=== PATIENT | male | born 1950 | race Caucasian/White ===

== ENCOUNTER 2020-01-22 13:44 | Outpatient (CLI) | payer MEDICARE ==
[2020-01-22 16:12] LABS: #Basophils 0.1 10x3/uL (0.0-0.2); #Eosinphils 0.2 10x3/uL (0.0-0.5); #Monocytes 0.5 10x3/uL (0.0-1.1); #Neutrophils 4.4 10x3/uL (1.5-8.4); %Basophils 0.7 % (0.0-2.0); %Eosinophils 3.2 % (0.0-6.0); %Lymphocytes 25.9 % (18.0-47.0); %Monocytes 6.5 % (0.0-10.0); %Neutrophils 63.6 % (40.0-75.0); Hemoglobin 14.9 g/dL (14.0-18.0); Mean Corpuscular HGB CONC 33.6 G/DL (32.0-36.0); Mean Corpuscular Hemoglobin 31.4 PG (27.0-33.0); Mean Corpuscular Volume 93.5 fl (80.0-100.0); Mean Platelet Volume 9.6 fl (7.4-10.4); Platelet Count 314 10x3/uL (130-400); RBC Distribution Width 12.2 % (11.5-14.5); Red Blood Cell (RBC) Count 4.74 10x6/uL (4.40-5.80)
[2020-01-22 16:36] LABS: Anion Gap 13 mmol/L (10-20); BUN (Urea Nitrogen) 13 mg/dL (8.4-25.7); Calc. Creatinine Clearance 0 mL/min (70-130); Carbon Dioxide 26 mmol/L (23-31); Cardiac Risk 4.8 (Less than 4.5); Chloride 105 mmol/L (98-107); Cholesterol 218 mg/dl (< 200 Desired); Estimated GFR-MDRD 62; Glucose 93 mg/dL (80-115); HDL Cholesterol 45 mg/dL (>60 Neg Risk); LDL Cholesterol, Calculated 141 mg/dL; Potassium 4.4 mmol/L (3.5-5.1); Sodium 140 mmol/L (136-145); Triglycerides 159 mg/dL (Less than 150)
[2020-01-23 12:11] LABS: SARS-CoV-2 MS2 Positive; SARS-CoV-2 N Gene Negative; SARS-CoV-2 S Gene Negative; SARS-CoV-2 by NAA Not Detected (NotDetected); SARS-CoV-2 orf1ab Negative
== END 2020-01-22 13:45 | disposition home or self-care (01) ==
LOC: LABBT 13:44
PROVIDERS: ATTEND Internal Medicine Cardiovascular Disease
DX: Z01.812 Encounter for preprocedural laboratory examination (principal); Z20.828 Contact with and (suspected) exposure to other viral communicable diseases
CPT/HCPCS: 80048; 80061; 85025; U0003; 87635

== ENCOUNTER 2020-01-25 07:15 | Day surgery (SDC) | payer MEDICARE ==
[2020-01-24 11:09] VITALS: BMI 21.1
[2020-01-25 08:16] LABS: Cardiac Risk 4.7 (Less than 4.5)
--- NOTE | 2020-01-25 10:42 | OP ---
DATE OF PROCEDURE: 01/25/2020 PROCEDURE PERFORMED: Transesophageal echocardiogram. INDICATIONS: A 69-year-old gentleman with mitral regurgitation. DESCRIPTION OF PROCEDURE: The patient was taken to the PACU. The patient was sedated by Anesthesiology. A transesophageal probe was placed into the distal esophagus and stomach. The echocardiographic images were obtained. The transesophageal probe was removed. FINDINGS: 1. Normal left ventricular systolic function. 2. Biatrial enlargement. 3. Normal mitral and aortic valves. 4. Cdenqkff-ba-davwqa mitral regurgitation. 5. Mild tricuspid regurgitation. 6. No thrombus noted in the left atrium or left atrial appendage. IMPRESSION: Cmnhzwbp-os-dnmeov mitral regurgitation with no thrombus noted in the left atrium or left atrial appendage. Job ID: [id number]
[2020-01-25] MEDS ORDERED: PHENYLEPHRINE-NS 100 MCG/ML 10 ML SYRINGE ONE (11:07)
[2020-01-25] MEDS ORDERED: PROPOFOL 200 MG/20 ML VIAL ONE (11:07)
[2020-01-25] MEDS ORDERED: Lidocaine 1% PF 5 ML VIAL ONE ×2 (11:07)
--- NOTE | 2020-01-25 14:37 | OP ---
DATE OF PROCEDURE: 01/25/2020 PROCEDURE PERFORMED: Transesophageal echocardiogram. INDICATIONS: A 69-year-old gentleman with mitral regurgitation. DESCRIPTION OF PROCEDURE: The patient was taken to the PACU. The patient was sedated by Anesthesiology. A transesophageal probe was placed into the distal esophagus and stomach. Echocardiographic images were obtained. The transesophageal probe was removed. FINDINGS: 1. Normal left ventricular systolic function. 2. Biatrial enlargement. 3. Severe mitral valve prolapse. 4. Cdlgqivl-mq-nsdmgt mitral regurgitation. 5. Mild tricuspid regurgitation. 6. No thrombus is noted in left atrium or left atrial appendage. IMPRESSION: Severe mitral valve prolapse with ecziugfj-hc-zjgqke mitral regurgitation with no formed thrombus in the left atrium or left atrial appendage. Job ID: [id number]
--- NOTE | 2020-01-28 20:53 | EKG ---
Test Reason : POST CARDIOVERSION Blood Pressure : / mmHG Vent. Rate : 052 BPM Atrial Rate : 052 BPM P-R Int : 204 ms QRS Dur : 150 ms QT Int : 510 ms P-R-T Axes : 079 047 051 degrees QTc Int : 474 ms Sinus bradycardia Right bundle branch block Abnormal ECG No previous ECGs available Confirmed by Mason PACHECO ([id number]) on 01/28/2020 8:52:52 PM Referred By: JESSY Confirmed By:Mason PACHECO
== END 2020-01-25 10:57 | disposition home or self-care (01) ==
LOC: CCL 07:15
PROVIDERS: ATTEND Internal Medicine Cardiovascular Disease
DX: I48.91 Unspecified atrial fibrillation (principal); I08.1 Rheumatic disorders of both mitral and tricuspid valves; J45.909 Unspecified asthma, uncomplicated; K21.9 Gastro-esophageal reflux disease without esophagitis; E78.00 Pure hypercholesterolemia, unspecified; E78.5 Hyperlipidemia, unspecified; Z79.01 Long term (current) use of anticoagulants; Z79.899 Other long term (current) drug therapy
CPT/HCPCS: 80061; 92960; 93005; 93010; 93312; J2704

== ENCOUNTER 2020-05-24 10:46 | Outpatient (CLI) | payer MEDICARE ==
[2020-04-24 14:19] LABS: Calcium 8.6 mg/dL (7.8-10.44); Chloride 105 mmol/L (98-107); Potassium 4.2 mmol/L (3.5-5.1); Sodium 139 mmol/L (136-145)
[2020-04-24 14:22] LABS: #Basophils 0.1 10x3/uL (0.0-0.2); #Eosinphils 0.2 10x3/uL (0.0-0.5); #Monocytes 0.6 10x3/uL (0.0-1.1); #Neutrophils 4.4 10x3/uL (1.5-8.4); %Basophils 0.7 % (0.0-2.0); %Eosinophils 3.4 % (0.0-6.0); %Monocytes 8.9 % (0.0-10.0); %Neutrophils 63.7 % (40.0-75.0); Hemoglobin 14.3 g/dL (14.0-18.0); Mean Corpuscular HGB CONC 33.3 G/DL (32.0-36.0); Mean Corpuscular Hemoglobin 31.6 PG (27.0-33.0); Mean Corpuscular Volume 94.9 fl (80.0-100.0); Platelet Count 260 10x3/uL (130-400); RBC Distribution Width 12.8 % (11.5-14.5); Red Blood Cell (RBC) Count 4.53 10x6/uL (4.40-5.80); White Blood Cell (WBC) Count 6.8 10x3/uL (4.5-11.0)
[2020-04-24 14:48] LABS: INR-International Normal Ratio 1.2; PTT 29.2 sec (22.0-33.0); Prothrombin Time 12.1 sec (9.5-12.1)
[2020-04-24 15:18] LABS: Anion Gap 15 mmol/L (10-20); BUN (Urea Nitrogen) 14 mg/dL (8.4-25.7); Calc. Creatinine Clearance 0 mL/min (70-130); Carbon Dioxide 23 mmol/L (23-31); Glucose 108 mg/dL (80-115)
[2020-04-25 02:44] LABS: SARS-CoV-2 PCR by NAA Not Detected (NotDetected)
[2020-05-24 12:21] LABS: Hemoglobin 14.3 g/dL (13.5-17.5); Mean Corpuscular Hemoglobin 31.8 pg (27.0-33.0); Mean Corpuscular Volume 93.8 fl (81.2-95.1); Mean Platelet Volume 9.8 fl (7.4-10.4); Platelet Count 224 10x3/uL (150-450); RBC Distribution Width 12.5 % (11.5-14.5); Red Blood Cell (RBC) Count 4.49 10x6/uL (4.32-5.72); White Blood Cell (WBC) Count 6.4 10x3/uL (3.5-10.5)
[2020-05-24 12:35] LABS: INR-International Normal Ratio 1.1
[2020-05-24 12:37] LABS: Anion Gap 12 mmol/L (10-20); BUN (Urea Nitrogen) 15 mg/dL (8.4-25.7); Calc. Creatinine Clearance 0 mL/min (70-130); Calcium 8.9 mg/dL (7.8-10.44); Carbon Dioxide 28 mmol/L (23-31); Chloride 103 mmol/L (98-107); Glucose 64 mg/dL (80-115); Potassium 4.5 mmol/L (3.5-5.1); Sodium 138 mmol/L (136-145)
[2020-05-24 21:53] LABS: SARS-CoV-2 PCR by NAA Not Detected (NotDetected)
== END 2020-05-24 10:47 | disposition home or self-care (01) ==
LOC: LABBT 10:46
PROVIDERS: ATTEND Internal Medicine Cardiovascular Disease
DX: Z01.818 Encounter for other preprocedural examination (principal); Z20.822 Contact with and (suspected) exposure to COVID-19
CPT/HCPCS: 80048 ×2; 85025; 85027; 85610 ×2; 85730 ×2; 93005 ×2; U0003 ×2; U0005 ×2; 87635; 93010

== ENCOUNTER 2020-05-27 06:05 | Observation (INO) | payer MEDICARE ==
[2020-04-25 11:46] VITALS: BMI 21.1
[2020-05-27] MEDS ORDERED: Heparin 2,000 ML ONE (06:42)
[2020-05-27] MEDS ORDERED: Heparin 10,000 UNITS/ 10 ML VIAL ONE ×2 (06:42→10:42)
[2020-05-27] MEDS ORDERED: Fentanyl 100 MCG/2 ML VIAL ONE ×2 (06:49→13:43)
[2020-05-27] MEDS ORDERED: Famotidine/PF 20 mg/2ml Vial ONE (07:26)
[2020-05-27] MEDS ORDERED: Isoproterenol 0.2 MG/1 ML AMP ONE ×3 (08:07→10:42)
[2020-05-27] MEDS ORDERED: Heparin 25,000 units/D5W 500 ML ONE (08:57)
[2020-05-27] MEDS ORDERED: Lidocaine 1% PF 5 ML VIAL ONE (10:33)
[2020-05-27] MEDS ORDERED: Dexamethasone 20 MG/5 ML VIAL ONE (10:33)
[2020-05-27] MEDS ORDERED: Glycopyrrolate 0.2 MG/ML 5 ML SYRINGE ONE (10:33)
[2020-05-27] MEDS ORDERED: Rocuronium Bromide 10 MG/ML (10ML VIAL) ONE (10:33)
[2020-05-27] MEDS ORDERED: Vecuronium 10 MG VIAL ONE (10:33)
[2020-05-27] MEDS ORDERED: Ondansetron PF 4 MG/2 ML Vial ONE (10:33)
[2020-05-27] MEDS ORDERED: PROPOFOL 200 MG/20 ML VIAL ONE (10:33)
[2020-05-27] MEDS ORDERED: PHENYLEPHRINE-NS 100 MCG/ML 10 ML SYRINGE ONE ×2 (10:33→11:34)
[2020-05-27] MEDS ORDERED: Calcium Chloride 1 GM/10 ML Abboject SYRINGE ONE (10:33)
[2020-05-27] MEDS ORDERED: Protamine Sulfate 50 MG/5 ML VIAL ONE (12:11)
[2020-05-27] MEDS ORDERED: Acetaminophen/Codeine 30-300mg Tablet PO PRN ×2 (13:47)
[2020-05-27] MEDS ORDERED: Ketorolac Tromethamine 30 MG/ML VIAL IVP PRN (13:47)
[2020-05-27] MEDS ORDERED: Acetaminophen 325 MG TAB PO PRN (13:50)
[2020-05-27] MEDS ORDERED: diphenhydrAMINE 25 MG CAP PO PRN (13:51)
[2020-05-27] MEDS ORDERED: Sucralfate 1 GM TAB PO PRN (13:51)
[2020-05-27] MEDS ORDERED: Calcium Carbonate 500 MG ChewTAB PO PRN (16:01)
[2020-05-27] MEDS ORDERED: Cepastat Lozenges 1 LOZ PO PRN (16:01)
[2020-05-27] MEDS: Apixaban 5 MG TAB PO SCH (20:16)
[2020-05-27] MEDS ORDERED: Atorvastatin Calcium 40 MG TAB PO SCH (21:00)
[2020-05-28 04:55] VITALS: TEMP 98.1
[2020-05-28] MEDS: Apixaban 5 MG TAB PO SCH (08:00)
[2020-05-28 08:06] VITALS: BP 121/72
[2020-05-28] MEDS ORDERED: Aspirin 81 mg Enteric Coated Tablet PO SCH (09:00)
== END 2020-05-28 10:52 | disposition home or self-care (01) ==
LOC: CCL 06:05 → 3SE 06:35
PROVIDERS: ADMIT Internal Medicine Cardiovascular Disease; ATTEND Internal Medicine Cardiovascular Disease
PROC: 4A023FZ Measurement of Cardiac Rhythm, Percutaneous Approach (ICD-10-PCS; principal; 2020-05-27)
PROC: 4A0234Z Measurement of Cardiac Electrical Activity, Percutaneous Approach (ICD-10-PCS; 2020-05-27)
PROC: 02583ZZ Destruction of Conduction Mechanism, Percutaneous Approach (ICD-10-PCS; 2020-05-27)
PROC: 02K83ZZ Map Conduction Mechanism, Percutaneous Approach (ICD-10-PCS; 2020-05-27)
DX: I48.19 Other persistent atrial fibrillation (principal); I10 Essential (primary) hypertension; I34.0 Nonrheumatic mitral (valve) insufficiency; J45.909 Unspecified asthma, uncomplicated; E78.5 Hyperlipidemia, unspecified; K21.9 Gastro-esophageal reflux disease without esophagitis; Z79.01 Long term (current) use of anticoagulants; Z79.82 Long term (current) use of aspirin; Z79.899 Other long term (current) drug therapy; Z86.73 Personal history of transient ischemic attack (TIA), and cerebral infarction without residual deficits
CPT/HCPCS: 76942; 85347 ×2; 92960; 93005 ×2; 93312; 93613; 93623; 93656; 93657; C1732 ×2; C1759; C1884; 93010; G0378; J1100; J1644; J2405; J2704; J2720; J3010; S0028

== ENCOUNTER 2020-06-11 15:10 | Outpatient (CLI) | payer MEDICARE ==
[2020-06-11 16:37] LABS: Hemoglobin 13.6 g/dL (13.5-17.5); Mean Corpuscular HGB CONC 33.7 g/dL (32.0-36.0); Mean Corpuscular Hemoglobin 32.1 pg (27.0-33.0); Mean Corpuscular Volume 95.3 fl (81.2-95.1); Mean Platelet Volume 9.9 fl (7.4-10.4); Platelet Count 349 10x3/uL (150-450); RBC Distribution Width 12.7 % (11.5-14.5); Red Blood Cell (RBC) Count 4.24 10x6/uL (4.32-5.72)
[2020-06-11 16:48] LABS: INR-International Normal Ratio 1.2; PTT 29.6 sec (22.0-33.0); Prothrombin Time 12.2 sec (9.5-12.1)
[2020-06-11 16:54] LABS: Anion Gap 11 mmol/L (10-20); BUN (Urea Nitrogen) 12 mg/dL (8.4-25.7); Calc. Creatinine Clearance 0 mL/min (70-130); Calcium 8.7 mg/dL (7.8-10.44); Carbon Dioxide 29 mmol/L (23-31); Chloride 108 mmol/L (98-107); Glucose 96 mg/dL (80-115); Potassium 4.7 mmol/L (3.5-5.1); Sodium 143 mmol/L (136-145)
[2020-06-12 05:36] LABS: SARS-CoV-2 PCR by NAA Not Detected (NotDetected)
== END 2020-06-11 15:11 | disposition home or self-care (01) ==
LOC: LABBT 15:10
PROVIDERS: ATTEND Internal Medicine Cardiovascular Disease
DX: Z01.812 Encounter for preprocedural laboratory examination (principal); Z20.822 Contact with and (suspected) exposure to COVID-19
CPT/HCPCS: 80048; 85027; 85610; 85730; U0003; U0005; 87635

== ENCOUNTER 2020-06-14 09:26 | Day surgery (SDC) | payer MEDICARE ==
[2020-06-13 08:35] VITALS: BMI 21.3
[2020-06-14] MEDS ORDERED: Lidocaine 1% PF 5 ML VIAL ONE (13:19)
[2020-06-14] MEDS ORDERED: PROPOFOL 200 MG/20 ML VIAL ONE (13:19)
== END 2020-06-14 14:37 | disposition home or self-care (01) ==
LOC: CCL 09:26
PROVIDERS: ATTEND Internal Medicine Cardiovascular Disease
PROC: 5A2204Z Restoration of Cardiac Rhythm, Single (ICD-10-PCS; principal; 2020-06-14)
DX: I48.0 Paroxysmal atrial fibrillation (principal); I34.1 Nonrheumatic mitral (valve) prolapse; I34.0 Nonrheumatic mitral (valve) insufficiency; K21.9 Gastro-esophageal reflux disease without esophagitis; I45.10 Unspecified right bundle-branch block; J45.909 Unspecified asthma, uncomplicated; E78.5 Hyperlipidemia, unspecified; Z86.73 Personal history of transient ischemic attack (TIA), and cerebral infarction without residual deficits; Z79.01 Long term (current) use of anticoagulants; Z79.82 Long term (current) use of aspirin; Z79.899 Other long term (current) drug therapy
CPT/HCPCS: 92960; 93005; 93010; J2704

== ENCOUNTER 2020-06-20 08:09 | Outpatient (CLI) | payer MEDICARE ==
[2020-06-20] MEDS ORDERED: Iopamidol 370 76% 100 ML VIAL ONE ×2 (13:46→13:57)
== END 2020-06-20 08:10 | disposition home or self-care (01) ==
LOC: CT 08:09
PROVIDERS: ATTEND Internal Medicine Cardiovascular Disease
DX: R07.89 Other chest pain (principal); I48.91 Unspecified atrial fibrillation
CPT/HCPCS: 71250; 71275; 74150; 74174; 74177; Q9967